=== PATIENT | male | born 1945 | race Caucasian/White ===

== ENCOUNTER 2020-06-16 08:57 | Inpatient (IN) ==
[2020-06-16 09:31] LABS: Basophils # (auto) 0.01 K/uL (0-0.2); Basophils % (auto) 0.1 %; Eosinophils # (auto) 0.25 K/uL (0-0.5); Eosinophils % (auto) 2.5 %; Hematocrit (blood only) 36.5 % (42-52); Hemoglobin 11.9 g/dL (14.0-18.0); Immature Granulocytes # (auto) 0.02 K/uL (0.00-0.02); Immature Granulocytes % (auto) 0.2 %; Lymphocytes # (auto) 0.98 K/uL (1.2-3.4); Lymphocytes % (auto) 9.7 %; Mean Corpuscular Hemoglobin 32.6 pg (25-34); Mean Corpuscular Hgb Conc 32.6 g/dL (32-36); Mean Platelet Volume 9.4 fL (7.4-10.4); Monocytes # (auto) 0.91 K/uL (0.11-0.59); Neutrophils # (auto) 7.98 K/uL (1.4-6.5); Neutrophils % (auto) 78.5 %; Platelet Count 261 K/uL (130-400); RDW Coefficient of Variation 13.5 % (11.5-14.5); RDW Standard Deviation 48.8 fL (36.4-46.3); Red Blood Count 3.65 M/uL (4.7-6.1); White Blood Count 10.15 K/uL (4.8-10.8)
[2020-06-16 09:41] LABS: INR 1.1 (0.9-1.1); Partial Thromboplastin Time 27.1 Seconds (21.0-31.0); Prothrombin Time 11.4 Seconds (9.0-12.0)
[2020-06-16 09:49] LABS: Albumin Level 3.1 gm/dl (3.4-5.0); BUN Creatinine Ratio 14.1 (10-20); Calcium 8.7 mg/dl (8.5-10.1); Creatinine Clr Calc Pharmacy 40.6 ml/min; Est GFR (African American) 34.4; Est GFR (Non-African American) 29.6; Potassium 3.6 mmol/L (3.5-5.1)
[2020-06-16 09:53] LABS: Albumin Globulin Ratio 0.8 (0.9-2); Bilirubin,Total 0.5 mg/dl (0.2-1); Globulin 3.9 gm/dl (2.5-4.0); Troponin I 0.032 ng/ml (0-0.045)
[2020-06-16] MEDS ORDERED: FUROSEMIDE 40 MG/4 ML VIAL IV STA (10:01)
--- NOTE | 2020-06-16 10:01 | XRay Report ---
XR chest 1V portable CLINICAL HISTORY: Shortness of breath COMPARISON STUDY: 06/06/2020 FINDINGS: The heart is enlarged. There are postsurgical changes of a midline sternotomy. There is mil d central pulmonary vascular congestion. There is subtle subpleural septal edema. There is no lobar c onsolidation. No significant pleural effusions are visualized. IMPRESSION: Cardiomegaly and radiographic evidence of congestive failure/fluid overload. ACT 112: Negative or not required by law. Electronically signed by: Sunny Perez M.D. 06/16/2020 10:00 AM
--- NOTE | 2020-06-16 10:21 | Emergency Department Note ---
Impression & Plan CHF (congestive heart failure), SOB (shortness of breath), Hypoxia, Acute kidney injury ED Provider Note NAME: HARLAN RODRIGUEZ AGE: 75 SEX: M : 1945 ARRIVES VIA: Walk-In INFORMANT: Patient, ED PROVIDER(S): Dillon Valderrama DO CHIEF COMPLAINT: Shortness of breath HPI: The patient is a 75-year-old male who presented to the emergency department for an evaluation of shortness of breath. The patient has a history of CHF. He was seen in our facility 1 week ago for similar complaints. At that time he was able to go home. He normally wears 2 L of oxygen and only increases this at night. Lately he has had to increase his oxygen more and more. Has noticed weight gain as well as orthopnea. The patient has a primary senior manufacturing technician and he was able to have his appointment moved up however over the last few days he noticed more weight gain more shortness of breath and his symptoms warranted a trip back to the emergency department. He does not complain of any chest pain. He has no lower extremity swelling or lower extremity pain. He has been compliant with his other medications including his blood thinners. The patient states his symptoms are worsened with any exertion. They are significantly improved at this time at rest with increased oxygen. ROS: See above HPI for pertinent positives & negatives. A total of 10 systems reviewed and were otherwise negative. PAST MEDICAL HISTORY: See Below PAST SURGICAL HISTORY: See Below FAMILY HISTORY: See Below SOCIAL HISTORY: See Below HOME MEDICATIONS: See Below ALLERGIES: See Below VITALS: See Below PHYSICAL EXAMINATION: GENERAL: The patient is awake and alert. He seems somewhat uncomfortable. EYES: The conjunctivae are clear. The pupils are round and reactive. EARS, NOSE, MOUTH AND THROAT: The nose is without any evidence of any deformity. Mucous membranes are moist. Tongue is midline. NECK: The neck is nontender and supple. RESPIRATORY: Shallow respirations were noted. Diminished breath sounds are noted throughout. There are rales in all lung monet. CARDIOVASCULAR: Ectopy was noted to auscultation. No definite murmur was noted. GASTROINTESTINAL: The abdomen is soft. Abdomen is nontender. MUSCULOSKELETAL/EXTREMITIES: There is no evidence of gross deformity full range of motion is noted in the hips and shoulders. SKIN: There is no obvious evidence of any rash. Pedal edema was noted bilaterally. NEUROLOGIC: Patient is awake alert and oriented x3 MEDICAL DECISION MAKING: The patient is a 75-year-old male who presented to the emergency department for an evaluation of shortness of breath. The patient complained of orthopnea. He also has weight gain. He has a history of CHF. I do feel the patient's presentation at this time is consistent with CHF exacerbation. I discussed the patient's laboratory and radiographic studies with him and his significant other. [facility] also [facility] The patient did have an elevation in his creatinine compared to baseline. Some of his symptoms today could be secondary to acute kidney injury however he was still treated with Lasix in the emergency department. The pa tient's oxygen was increased and he was feeling much better on increased supplemental oxygen. The patient may require further work-up to determine why he has an ablation his creatinine as well as an acute exacerbation of his chronic CHF. Triage Nursing notes reviewed. Prior medical records reviewed Vital Signs: reviewed and remarkable for hypoxia and elevated blood pressure. Differential diagnosis: Reactive airway disease, pneumonia, pneumothorax, COPD, CHF, infections, cardiac ischemia, pulmonary embolism, musculoskeletal, gastrointestinal, as well as other pathologies. ER treatment provided: See below Diagnostics interpreted by me: ECG: EKG was obtained in the emergency department. My interpretation is atrial fibrillation at 65 bpm. Frequent PVCs were noted. There is no acute ST segment abnormalities noted. This was compared to a tracing from June 09, 2020. No significant changes were noted. Cardiac Monitoring: An order was placed for continuous cardiac monitoring. The monitor shows a rate of 88 with atrial fibrillation rhythm. Laboratory studies: As stated above and show below. Imaging studies: See below Consultation(s): 1045: I discussed this case with Dr. Snyder who [facility] She will evaluate the patient in the emergency department for further management and disposition. Past Med/Surg History Medical History A-fib (Chronic) CHF (congestive heart failure) (Chronic) Surgical History Hx of CABG (Resolved) Social History Smoking Status: Former smoker Preferred Language: Greek Feels Safe at Home: Yes Allergies Allergies Allergy/AdvReac Type Severity Reaction Status Date / Time lisinopril Allergy Unknown Unverified 06/16/20 09:29 rosiglitazone AdvReac Intermediate PASSES Verified 06/06/20 16:27 OUT, LIGHT HEADED Home Meds Home Medications Medication Instructions Recorded Confirmed amlodipine [Norvasc] 10 mg PO QPM #0 06/15/09 06/16/20 metoprolol tartrate 12.5 mg PO QAM #0 06/15/09 06/16/20 multivitamin 1 tab PO DAILY #0 06/15/09 06/16/20 omeprazole magnesium [Prilosec OTC] 20 mg PO DAILY #0 06/15/09 06/16/20 albuterol sulfate [Ventolin HFA] 2 puff INHALATION Q4H #0 05/05/12 06/16/20 tamsulosin [Flomax] 0.4 mg PO BID #0 cap 05/05/12 06/16/20 finasteride [Proscar] 5 mg PO DAILY #0 tab 07/25/13 06/16/20 insulin aspart U-100 [Novolog 10 unit SUBCUT BID #0 btl 07/25/13 06/16/20 U-100 Insulin aspart] insulin glargine [Lantus U-100 35 unit SUBCUT PM #0 vial 07/25/13 06/16/20 Insulin] isosorbide mononitrate 15 mg PO DAILY #0 tab 07/25/13 06/16/20 nitroglycerin 0.4 mg SUBLINGUAL UD #0 btl 07/25/13 06/16/20 atorvastatin [Lipitor] 40 mg PO PM #0 tab 07/12/16 06/16/20 sertraline [Zoloft] 50 mg PO DAILY #0 tab 07/12/16 06/16/20 acetaminophen 1,000 mg PO Q8H PRN 06/06/20 06/16/20 apixaban 5 mg PO BID 06/06/20 06/16/20 bumetanide 3 mg PO DAILY 06/06/20 06/16/20 cholecalciferol (vitamin D3) 25 mcg PO DAILY 06/06/20 06/16/20 [Vitamin D3] clopidogrel 75 mg PO DAILY 06/06/20 06/16/20 ezetimibe [Zetia] 10 mg PO DAILY 06/06/20 06/16/20 insulin aspart U-100 [Novolog 14 unit SUBCUT QPM 06/06/20 06/16/20 U-100 Insulin aspart] metoprolol tartrate 12.5 mg PO QPM 06/06/20 06/16/20 losartan 50 mg PO DAILY 06/16/20 06/16/20 Results & Data (ED) Vital Signs Vital Signs - 24 hr 06/16/20 09:02 06/16/20 09:17 06/16/20 09:19 Temperature 36.8 C Temperature Source Oral Pulse Rate 82 Pulse Rate from SpO2 Sensor Pulse Rhythm Regular Pulse Strength Normal Respiratory Rate 24 Respiratory Effort / Characteristics Non-Labored Spontaneous Respiratory Depth Normal Respiratory Pattern Regular Blood Pressure 122/68 Blood Pressure Mean 86 Blood Pressure Position Sitting Pulse Oximetry 80 L 97 96 Oxygen Delivery Method Room Air Nasal Cannula Nasal Cannula Oxygen Flow Rate 4 4 Sepsis Recent Fever Within 48 Hours No Sepsis New/Unexplained Change in Mental Status No Sepsis Action Taken by Nursing No Action Required 06/16/20 09:26 06/16/20 09:30 06/16/20 09:45 Temperature Temperature Source Pulse Rate 62 63 64 Pulse Rate from SpO2 Sensor 59 L 70 62 Pulse Rhythm Pulse Strength Respiratory Rate 8 L 15 16 Respiratory Effort / Characteristics Respiratory Depth Respiratory Pattern Blood Pressure Blood Pressure Mean Blood Pressure Position Pulse Oximetry 98 97 97 Oxygen Delivery Method Oxygen Flow Rate Sepsis Recent Fever Within 48 Hours Sepsis New/Unexplained Change in Mental Status Sepsis Action Taken by Nursing 06/16/20 10:00 06/16/20 10:01 Temperature Temperature Source Pulse Rate 59 L 73 Pulse Rate from SpO2 Sensor 62 69 Pulse Rhythm Pulse Strength Respiratory Rate 20 20 Respiratory Effort / Characteristics Respiratory Depth Respiratory Pattern Blood Pressure 166/60 H Blood Pressure Mean 89 Blood Pressure Position Pulse Oximetry 96 95 Oxygen Delivery Method Oxygen Flow Rate Sepsis Recent Fever Within 48 Hours Sepsis New/Unexplained Change in Mental Status Sepsis Action Taken by Long Term Medications Current Medication List: was personally reviewed by me Laboratory Data Attestation: I reviewed the patient's lab results. Result diagrams: 06/16/20 09:20 06/16/20 09:20 Lab Results 06/16/20 06/16/20 06/16/20 Range/Units 09:20 09:20 09:20 WBC 10.15 (4.8-10.8) K/uL RBC 3.65 L (4.7-6.1) M/uL Hgb 11.9 L (14.0-18.0) g/dL Hct 36.5 L (42-52) % MCV 100.0 (80-100) fL MCH 32.6 (25-34) pg MCHC 32.6 (32-36) g/dL RDW Std Deviation 48.8 H (36.4-46.3) fL RDW Coeff of Tricia 13.5 (11.5-14.5) % Plt Count 261 (130-400) K/uL MPV 9.4 (7.4-10.4) fL Immature Gran % (Auto) 0.2 % Neut % (Auto) 78.5 % Lymph % (Auto) 9.7 % Cobb % (Auto) 9.0 % Eos % (Auto) 2.5 % Baso % (Auto) 0.1 % Neut # (Auto) 7.98 H (1.4-6.5) K/uL Lymph # (Auto) 0.98 L (1.2-3.4) K/uL Cobb # (Auto) 0.91 H (0.11-0.59) K/uL Eos # (Auto) 0.25 (0-0.5) K/uL Baso # (Auto) 0.01 (0-0.2) K/uL Immature Gran # (Auto) 0.02 (0.00-0.02) K/uL PT 11.4 (9.0-12.0) Seconds INR 1.1 (0.9-1.1) APTT 27.1 (21.0-31.0) Seconds PTT Ratio 1.0 Sodium 141 (136-145) mmol/L Potassium 3.6 (3.5-5.1) mmol/L Chloride 107 (98-107) mmol/L Carbon Dioxide 29 (21-32) mmol/L Anion Gap 5.0 (3-11) BUN 30 H (7-18) mg/dl Creatinine 2.09 H (0.6-1.4) mg/dl Est Cr Clr Drug Dosing 40.6 ml/min Est GFR ( Amer) 34.4 Est GFR (Non-Af Amer) 29.6 BUN/Creatinine Ratio 14.1 (10-20) Glucose 187 H (70-99) mg/dl Calcium 8.7 (8.5-10.1) mg/dl Total Bilirubin 0.5 (0.2-1) mg/dl AST 14 L (15-37) U/L ALT 18 (12-78) U/L Alkaline Phosphatase 105 (45-117) U/L Troponin I 0.032 (0-0.045) ng/ml Total Protein 7.0 (6.4-8.2) gm/dl Albumin 3.1 L (3.4-5.0) gm/dl Globulin 3.9 (2.5-4.0) gm/dl Albumin/Globulin Ratio 0.8 L (0.9-2) Administered Medications Discontinued Medications Furosemide (Lasix) 40 mg IV NOW STA Stop: 06/16/20 10:02 Last Admin: 06/16/20 10:13 Dose: 40 mg Documented by: [id number] Imaging Data Radiologist's Impression: XR chest 1V portable CLINICAL HISTORY: Shortness of breath COMPARISON STUDY: 06/06/2020 FINDINGS: The heart is enlarged. There are postsurgical changes of a midline sternotomy. There is mild central pulmonary vascular congestion. There is subtle subpleural septal edema. There is no lobar consolidation. No significant pleural effusions are visualized. IMPRESSION: Cardiomegaly and radiographic evidence of congestive failure/fluid overload. ACT 112: Negative or not required by law. Electronically signed by: Sunny Perez M.D. 06/16/2020 10:00 AM Dictated: 06/16/2059 Transcribed: 06/16/20958 Blood Pressure Blood Pressure Findings: Elevated blood pressure Blood Pressure Disposition: further management by hospitalist Discharge Plan Visit Data Chief Complaint: Shortness of Breath/Dyspnea Stated Complaint: SOB,VERY LOW 02 STATS,3LBS WEIGHT GAIN OVER NIGHT ED Provider: Dillon Valderrama Discharge Problem: CHF (congestive heart failure), SOB (shortness of breath), Hypoxia, Acute kidney injury Patient Disposition: Being Evaluated by Hospitalist Condition: Good Forms Stand Alone Forms: My [employer] Prescriptions Prescriptions: No Action multivitamin Tablet 1 tab PO DAILY Qty: 0 RF: 0 amlodipine [Norvasc] 10 mg Tablet 10 mg PO QPM Qty: 0 RF: 0 omeprazole magnesium [Prilosec OTC] 20 mg Tablet,Delayed Release (Dr/Ec) 20 mg PO DAILY Qty: 0 RF: 0 metoprolol tartrate 25 mg Tablet 12.5 mg PO QAM Qty: 0 RF: 0 tamsulosin [Flomax] 0.4 mg Capsule 0.4 mg PO BID Qty: 0 RF: 0 albuterol sulfate [Ventolin HFA] 90 mcg/actuation Hfa Aerosol Inhaler 2 puff INHALATION Q4H Qty: 0 RF: 0 Lantus U-100 Insulin 100 unit/mL Solution 35 unit SUBCUT PM Qty: 0 RF: 0 isosorbide mononitrate 30 mg Tablet Extended Release 24 Hr 15 mg PO DAILY Qty: 0 RF: 0 insulin aspart U-100 [Novolog U-100 Insulin aspart] 100 unit/mL Solution 10 unit SUBCUT BID Qty: 0 RF: 0 nitroglycerin 0.4 mg Tablet, Sublingual 0.4 mg sublingual UD Qty: 0 RF: 0 finasteride [Proscar] 5 mg Tablet 5 mg PO DAILY Qty: 0 RF: 0 atorvastatin [Lipitor] 80 mg Tablet 40 mg PO PM Qty: 0 RF: 0 sertraline [Zoloft] 50 mg Tablet 50 mg PO DAILY Qty: 0 RF: 0 clopidogrel 75 mg Tablet 75 mg PO DAILY RF: 0 insulin aspart U-100 [Novolog U-100 Insulin aspart] 100 unit/mL Solution 14 unit SUBCUT QPM RF: 0 acetaminophen 500 mg Capsule 1,000 mg PO Q8H PRN (Reason: Pain) RF: 0 cholecalciferol (vitamin D3) [Vitamin D3] 25 mcg (1,000 unit) Capsule 25 mcg PO DAILY RF: 0 ezetimibe [Zetia] 10 mg Tablet 10 mg PO DAILY RF: 0 metoprolol tartrate 25 mg Tablet 12.5 mg PO QPM RF: 0 apixaban 5 mg Tablet 5 mg PO BID RF: 0 bumetanide 1 mg Tablet 3 mg PO DAILY RF: 0 losartan 50 mg Tablet 50 mg PO DAILY RF: 0 Referrals Referrals: Austin Singletary MD [Primary Care Provider] - Discharge Problem: CHF (congestive heart failure) Qualifiers: Heart failure type: unspecified Heart failure chronicity: acute on chronic Qualified Code(s): I50.9 - Heart failure, unspecified
--- NOTE | 2020-06-16 10:54 | History & Physical Report ---
Date of Service June 16, 2020 Assessment & Plan (1) CHF (congestive heart failure): Here with acute on chronic diastolic CHF, has mild ischemic cardiomyopathy with LVEF 45% on most recent echo Follows with cardiology at the [facility] in [place] Here with weight gain, lower extremity edema, progressively worsening shortness of breath and acute hypoxic respiratory failure proBNP was elevated 10 days ago-we will check again -Admit to telemetry unit for arrhythmia monitoring -Continue Lasix 40 mg IV twice daily -Strict I's and O's, daily weights, low-sodium diet, fluid restrict 1800 mL's per day -Carefully monitor renal function-he is at his baseline creatinine of 2.0- confirmed baseline creatinine with at bedside -Supplemental O2 as needed -Continue cardiac medications from home to include metoprolol, losartan, isosorbide, amlodipine all for blood pressure control -Hold home p.o. Bumex (2) Hypoxia: With acute on chronic respiratory failure with hypoxia Normally he is on 2 L at nighttime with his BiPAP Now requiring 4 L during the day with a pulse ox of 80% upon arrival -Continue supplemental O2 and wean off as able to to keep pulse ox greater than 92% He does have underlying COPD -Continue diuresis as above -Continue home inhalers with albuterol as needed and Spiriva once daily (3) A-fib: Permanent atrial fibrillation, on Eliquis for anticoagulation -Continue low-dose metoprolol tartrate for rate control No acute issues (4) CAD (coronary artery disease), [place] coronary artery: Status post 6 stents and two-vessel CABG Follows with cardiology in [place] as noted above -Continue home Plavix, Eliquis, metoprolol, isosorbide, atorvastatin (5) CKD (chronic kidney disease) stage 3, GFR 30-59 ml/min: Baseline creatinine 2.0 as per -Watch carefully renal function with IV diuresis -Avoid nephrotoxins -renally dose meds when appropriate -follow BMP -Okay to continue losartan at this time (6) Diabetes mellitus type 2 in obese: On insulin at home -Continue home Lantus and will give NovoLog sliding scale, Accu-Cheks q. before meals and at bedtime Diabetic diet Check hemoglobin A1c in the morning (7) HTN (hypertension), benign: Blood pressures mildly elevated here -Giving IV diuresis -Continue other medications as above from home (8) GERD (gastroesophageal reflux disease): Continue PPI (9) BPH (benign prostatic hyperplasia): Continue Flomax and finasteride , No acute issues (10) Depression: Stable -Continue home sertraline (11) Hyperlipidemia: Continue home statin (12) COPD (chronic obstructive pulmonary disease): With hypoxia as above, does not seem to be an exacerbation at this time -Continue home Spiriva, albuterol as needed No need for steroids specially in the setting of acute CHF (13) KELLY treated with BiPAP: His will bring in his BiPAP from home with 2 L at nighttime (14) Obesity: BMI 42.1 -Needs weight loss and low calorie diet (15) Ischemic cardiomyopathy: As noted above, last LVEF 45% (16) PAD (peripheral artery disease): He has bilateral lower extremity PAD with leg claudication No intervention to be performed given his chronic kidney disease -Continue Plavix, Eliquis, statin (17) Chronic respiratory failure with hypoxia: As noted above, uses 2 L with BiPAP at nighttime (18) History of CVA (cerebrovascular accident): Now on Eliquis, with history of A. fib With some residual left-sided weakness -Continue Plavix, Eliquis (19) Anemia: With mild anemia here with is normocytic, hemoglobin 11 -Check iron studies, B12, folate, TSH in the morning Most likely anemia of chronic disease Follow CBC (20) DVT prophylaxis: Eliquis, would not do VERN hose or SCDs given PAD Disposition-admit to telemetry, expected least a 2 midnight stay DNR, but would consider intubation for pure respiratory failure History of Present Illness Chief Complaint: Shortness of breath Primary Care Provider: Austin Singletary MD This patient is a very pleasant 75-year-old male [place] with a history of A. fib on Eliquis, CAD status post CABG and 6 stents, chronic diastolic CHF, and mild LV dysfunction with EF 45%, HTN, CKD stage III, COPD, CVA with mild residual left-sided weakness, GERD, BPH, hyperlipidemia, depression, DM 2, KELLY on BiPAP, and PAD of the bilateral lower extremities who presents for the second time in the last 10 days to our ER with acutely worsening shortness of breath. In the ER on 06/06 he was treated with IV Bumex and potassium and felt well enough to go home. He is normally on no O2 during the day but uses 2 L with his BiPAP of O2 nocturnally and he tried to use BiPAP this morning but it did not help and he came to the ER. His pulse ox at home on his 's pulse oximeter was 77%. Upon arrival here today, his pulse ox was 80% on room air. His chest x-ray appeared worse than previous with cardiomegaly and pulmonary vascular congestion. His keeps a daily record of his vital signs and weights-she reports after last week's ER visit, he went up on his Bumex to 2 mg p.o. twice daily for 2 days and then his PCP directed him to take 3 mg p.o. once daily (previous dose was 2 mg p.o. once daily). His weight did go down by 7 pounds, and now he is back up 9 pounds from that aba at 292 pounds on the home scale today. He also has some increased ankle swelling and increased abdominal girth and distention. He denies fever/chills, no cough, no chest pain. No nausea/vomiting, no abdominal pain, no constipation or diarrhea. He has been socially isolating and staying at home except to go to doctors visits and [place] . In the ER, he was given a dose of IV Lasix. He will be admitted for acute exacerbation of chronic diastolic CHF. Allergies Allergy/AdvReac Type Severity Reaction Status Date / Time lisinopril Allergy Unknown Unverified 06/16/20 09:29 rosiglitazone AdvReac Intermediate PASSES Verified 06/06/20 16:27 OUT, LIGHT HEADED Home Medications Home Medications Medication Instructions Recorded Confirmed Type amlodipine [Norvasc] 10 mg PO QPM #0 06/15/09 06/16/20 History metoprolol tartrate 12.5 mg PO QAM #0 06/15/09 06/16/20 History multivitamin 1 tab PO DAILY #0 06/15/09 06/16/20 History omeprazole magnesium [Prilosec OTC] 20 mg PO DAILY #0 06/15/09 06/16/20 History albuterol sulfate [Ventolin HFA] 2 puff INHALATION Q4H #0 05/05/12 06/16/20 History tamsulosin [Flomax] 0.4 mg PO BID #0 cap 05/05/12 06/16/20 History finasteride [Proscar] 5 mg PO DAILY #0 tab 07/25/13 06/16/20 History insulin aspart U-100 [Novolog 10 unit SUBCUT BID #0 btl 07/25/13 06/16/20 History U-100 Insulin aspart] insulin glargine [Lantus U-100 35 unit SUBCUT PM #0 vial 07/25/13 06/16/20 History Insulin] isosorbide mononitrate 15 mg PO DAILY #0 tab 07/25/13 06/16/20 History nitroglycerin 0.4 mg SUBLINGUAL UD #0 btl 07/25/13 06/16/20 History atorvastatin [Lipitor] 40 mg PO PM #0 tab 07/12/16 06/16/20 History sertraline [Zoloft] 50 mg PO DAILY #0 tab 07/12/16 06/16/20 History acetaminophen 1,000 mg PO Q8H PRN 06/06/20 06/16/20 History apixaban 5 mg PO BID 06/06/20 06/16/20 History bumetanide 3 mg PO DAILY 06/06/20 06/16/20 History cholecalciferol (vitamin D3) 25 mcg PO DAILY 06/06/20 06/16/20 History [Vitamin D3] clopidogrel 75 mg PO DAILY 06/06/20 06/16/20 History ezetimibe [Zetia] 10 mg PO DAILY 06/06/20 06/16/20 History insulin aspart U-100 [Novolog 14 unit SUBCUT QPM 06/06/20 06/16/20 History U-100 Insulin aspart] metoprolol tartrate 12.5 mg PO QPM 06/06/20 06/16/20 History losartan 50 mg PO DAILY 06/16/20 06/16/20 History Past Med/Surg History Medical History (Updated 06/16/20 @ 11:48 by Aranza Snyder MD) A-fib (Chronic) Anemia BPH (benign prostatic hyperplasia) CAD (coronary artery disease), [place] coronary artery CHF (congestive heart failure) (Chronic) Chronic respiratory failure with hypoxia CKD (chronic kidney disease) stage 3, GFR 30-59 ml/min COPD (chronic obstructive pulmonary disease) Depression Diabetes mellitus type 2 in obese GERD (gastroesophageal reflux disease) History of CVA (cerebrovascular accident) HTN (hypertension), benign Hyperlipidemia Ischemic cardiomyopathy Obesity KELLY treated with BiPAP PAD (peripheral artery disease) Surgical History History of cataract extraction History of rotator cuff surgery History of total left knee replacement (Inactive) Hx of CABG (Resolved) Family History Other Family history non-contributory Social History Smoking Status: Former smoker Tobacco Type: Cigarettes Age Quit Using Tobacco: 45; packs per day: 1; Years Smoked: 30; Hx Alcohol Use: No Hx Substance Use: No Preferred Language: Swedish marital status: Current Living Situation: Spouse current occupational status: retired 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 [employer] How many Children do You have: 4 Feels Safe at Home: Yes Review of Systems Review of Systems: All systems reviewed & are unremarkable except as noted in HPI & below Physical Exam Constitutional: WD/WN, vitals as above + morbidly obese Eyes: PERRL, conjunctivae normal, anicteric sclerae ENMT: external ear and nose normal, oropharynx normal (With large tongue) Neck: trachea midline, no thyromegaly (Obese neck) Respiratory: normal respiratory effort (With nasal cannula in place); no labored breathing, no cough and not tachypneic Auscultation: + diminished lung sounds (Throughout) and + crackles (Bibasilar); no wheezes Cardiovascular: Rate/Rhythm: regular rate and + irregularly irregular Heart Sounds: no murmur Extremities: + edema (Trace pitting edema of the feet and ankles bilaterally) Chest (Breasts): Chest: + abnormal inspection of chest (Midline sternotomy scar) Gastrointestinal (Abdomen): normal bowel sounds, soft, nontender, no hepatosplenomegaly (Morbidly obese) Musculoskeletal: Extremities: extremities normal to inspection; no cyanosis and no clubbing Skin: no rashes, warm and dry Neurologic: moves all extremities and awake; no focal motor deficits Psychiatric: A+Ox3, euthymic affect Lymphatic: no lymphedema Results & Data Results & Data ([facility]) Vital Signs (Past 12 Hours) Vital Signs Temp Pulse Resp BP Pulse Ox 06/16/20 10:01 73 20 95 06/16/20 10:00 59 L 20 166/60 H 96 06/16/20 09:45 64 16 97 06/16/20 09:30 63 15 97 06/16/20 09:26 62 8 L 98 06/16/20 09:19 96 06/16/20 09:17 97 06/16/20 09:02 36.8 C 82 24 122/68 80 L Laboratory Results 06/16/20 06/16/20 06/16/20 Range/Units 09:20 09:20 09:20 WBC 10.15 (4.8-10.8) K/uL RBC 3.65 L (4.7-6.1) M/uL Hgb 11.9 L (14.0-18.0) g/dL Hct 36.5 L (42-52) % MCV 100.0 (80-100) fL MCH 32.6 (25-34) pg MCHC 32.6 (32-36) g/dL RDW Std Deviation 48.8 H (36.4-46.3) fL RDW Coeff of Tricia 13.5 (11.5-14.5) % Plt Count 261 (130-400) K/uL MPV 9.4 (7.4-10.4) fL Immature Gran % (Auto) 0.2 % Neut % (Auto) 78.5 % Lymph % (Auto) 9.7 % Walsh % (Auto) 9.0 % Eos % (Auto) 2.5 % Baso % (Auto) 0.1 % Neut # (Auto) 7.98 H (1.4-6.5) K/uL Lymph # (Auto) 0.98 L (1.2-3.4) K/uL Walsh # (Auto) 0.91 H (0.11-0.59) K/uL Eos # (Auto) 0.25 (0-0.5) K/uL Baso # (Auto) 0.01 (0-0.2) K/uL Immature Gran # (Auto) 0.02 (0.00-0.02) K/uL PT 11.4 (9.0-12.0) Seconds INR 1.1 (0.9-1.1) APTT 27.1 (21.0-31.0) Seconds PTT Ratio 1.0 Sodium 141 (136-145) mmol/L Potassium 3.6 (3.5-5.1) mmol/L Chloride 107 (98-107) mmol/L Carbon Dioxide 29 (21-32) mmol/L Anion Gap 5.0 (3-11) BUN 30 H (7-18) mg/dl Creatinine 2.09 H (0.6-1.4) mg/dl Est Cr Clr Drug Dosing 40.6 ml/min Est GFR ( Amer) 34.4 Est GFR (Non-Af Amer) 29.6 BUN/Creatinine Ratio 14.1 (10-20) Glucose 187 H (70-99) mg/dl Calcium 8.7 (8.5-10.1) mg/dl Total Bilirubin 0.5 (0.2-1) mg/dl AST 14 L (15-37) U/L ALT 18 (12-78) U/L Alkaline Phosphatase 105 (45-117) U/L Troponin I 0.032 (0-0.045) ng/ml Total Protein 7.0 (6.4-8.2) gm/dl Albumin 3.1 L (3.4-5.0) gm/dl Globulin 3.9 (2.5-4.0) gm/dl Albumin/Globulin Ratio 0.8 L (0.9-2) Diagnostic Findings Chest x-ray image personally reviewed by me and agree with the following report: XR chest 1V portable CLINICAL HISTORY: Shortness of breath COMPARISON STUDY: 06/06/2020 FINDINGS: The heart is enlarged. There are postsurgical changes of a midline sternotomy. There is mild central pulmonary vascular congestion. There is subtle subpleural septal edema. There is no lobar consolidation. No significant pleural effusions are visualized. IMPRESSION: Cardiomegaly and radiographic evidence of congestive failure/fluid overload. ECG Additional Comments: ECG on 06/16/2020 at 0 914 with atrial fibrillation, rate 65, with PVCs, left axis deviation, no change from previous Code Status & VTE Plan Code Status DNR, but would consider intubation for respiratory failure VTE Prophylaxis Plan VTE Prophylaxis will be ordered: Yes PG Care Time/CCT Total # of Minutes Spent Total Time Spent with Patient: Total time spent is greater than 50% in coordination of care (as documented) at patient's floor/unit and/or counseling patient: Coding Level of Care Code 06531 Initial Inpt Care Lvl 3 Diagnoses CHF (congestive heart failure) I50.9 Heart failure chronicity: acute on chronic Heart failure type: unspecified Hypoxia R09.02 A-fib I48.91 CAD (coronary artery disease), [place] coronary artery I25.10 CKD (chronic kidney disease) stage 3, GFR 30-59 ml/min N18.3 Diabetes mellitus type 2 in obese E11.69; E66.9 HTN (hypertension), benign I10 GERD (gastroesophageal reflux disease) K21.9 BPH (benign prostatic hyperplasia) N40.0 Depression F32.9 Hyperlipidemia E78.5 COPD (chronic obstructive pulmonary disease) J44.9 KELLY treated with BiPAP G47.33 Obesity E66.9 Ischemic cardiomyopathy I25.5 PAD (peripheral artery disease) I73.9 Chronic respiratory failure with hypoxia J96.11 History of CVA (cerebrovascular accident) Z86.73 Anemia D64.9 DVT prophylaxis Z29.9 (1) CHF (congestive heart failure) Heart failure chronicity: acute on chronic Heart failure type: unspecified Qualified Code(s): I50.9 - Heart failure, unspecified
[2020-06-16] MEDS ORDERED: POLYETHYLENE (MIRALAX) 17 GM PACK PO PRN (14:34)
[2020-06-16] MEDS ORDERED: ACETAMINOPHEN 500 MG TAB PO PRN (14:34)
[2020-06-16] MEDS ORDERED: GLUCOSE 40% GEL 15 GM TUBE PO PRN (14:34)
[2020-06-16] MEDS ORDERED: NITROGLYCERIN SL 0.4 MG/TAB TAB SL PRN (14:34)
[2020-06-16] MEDS ORDERED: DEXTROSE 50% 50 ML SYRINGE IV PRN (14:34)
[2020-06-16] MEDS ORDERED: CARBOHYDRATES FOR HYPOGLYCEMIA PO PRN (14:34)
[2020-06-16] MEDS ORDERED: GLUCOSE 10 TABS/TUBE PO PRN (14:34)
[2020-06-16] MEDS ORDERED: GLUCAGON FOR INJ 1 MG VIAL SQ PRN (14:34)
[2020-06-16] MEDS ORDERED: ONDANSETRON INJ 2 MG/ML 2 ML VIAL IV PRN (14:34)
--- NOTE | 2020-06-16 16:13 | Electrocardiogram Report ---
Test Reason : Blood Pressure : / mmHG Vent. Rate : 065 BPM Atrial Rate : 312 BPM P-R Int : 000 ms QRS Dur : 104 ms QT Int : 420 ms P-R-T Axes : 000 -44 031 degrees QTc Int : 436 ms Atrial fibrillation with premature ventricular or aberrantly conducted complexes Left axis deviation Abnormal ECG When compared with ECG of 06-JUN-2020 16:11, No significant change was found Confirmed by Mike Schaefer ([id number]) on 06/16/2020 4:13:16 PM Referred By: ED Confirmed By:Mike Schaefer
[2020-06-16] MEDS: ALBUTEROL HFA 8 GM INHALER INH SCH ×2 (17:03→20:00)
[2020-06-16] MEDS: FUROSEMIDE 40 MG in SYRINGE 1 ML IV SCH (17:34)
[2020-06-16] MEDS: INSULIN ASPART 100 UNITS/ML 3 ML PEN SC SCH ×2 (17:35→20:39)
[2020-06-16] MEDS: AMLODIPINE BESYLATE 5 MG TAB PO SCH (20:24)
[2020-06-16] MEDS: ATORVASTATIN 40 MG TAB PO SCH (20:24)
[2020-06-16] MEDS: APIXABAN 5 MG TABLET PO SCH (20:24)
[2020-06-16] MEDS: METOPROLOL TARTRATE 25 MG TAB PO SCH (20:25)
[2020-06-16] MEDS: TAMSULOSIN HCL 0.4 MG CAP PO SCH (20:25)
[2020-06-16] MEDS: INSULIN GLARGINE SOLOSTAR 100 UNITS/ML 3 ML PEN SQ SCH (20:26)
[2020-06-17] MEDS: ALBUTEROL HFA 8 GM INHALER INH SCH ×4 (07:01→19:16)
[2020-06-17 07:31] LABS: Basophils # (auto) 0.01 K/uL (0-0.2); Basophils % (auto) 0.1 %; Eosinophils # (auto) 0.16 K/uL (0-0.5); Eosinophils % (auto) 2.1 %; Hematocrit (blood only) 34.3 % (42-52); Hemoglobin 11.3 g/dL (14.0-18.0); Immature Granulocytes # (auto) 0.02 K/uL (0.00-0.02); Immature Granulocytes % (auto) 0.3 %; Lymphocytes # (auto) 1.18 K/uL (1.2-3.4); Lymphocytes % (auto) 15.3 %; Mean Corpuscular Hemoglobin 33.2 pg (25-34); Mean Corpuscular Hgb Conc 32.9 g/dL (32-36); Mean Corpuscular Volume 100.9 fL (80-100); Mean Platelet Volume 9.5 fL (7.4-10.4); Monocytes # (auto) 0.84 K/uL (0.11-0.59); Monocytes % (auto) 10.9 %; Neutrophils # (auto) 5.48 K/uL (1.4-6.5); Neutrophils % (auto) 71.3 %; Platelet Count 247 K/uL (130-400); RDW Coefficient of Variation 13.4 % (11.5-14.5); RDW Standard Deviation 49.2 fL (36.4-46.3); White Blood Count 7.69 K/uL (4.8-10.8)
--- NOTE | 2020-06-17 07:55 | Hospitalist Progress Note ---
Date of Service June 17, 2020 Assessment & Plan (1) CHF (congestive heart failure): Here with acute on chronic diastolic CHF, has mild ischemic cardiomyopathy with LVEF 45% on most recent echo Follows with cardiology at [facility] [place] Lasix 40 mg IV twice daily , low-sodium diet, fluid restrict 1800 mL's per day -Carefully monitor renal function-he is at his baseline creatinine of 2.0- confirmed baseline creatinine with at bedside Chronic kidney disease stage 3-4 -Supplemental O2 as needed -Continue cardiac medications from home to include metoprolol, losartan, isosorbide, amlodipine all for blood pressure control -Hold home p.o. Bumex (2) Hypoxia: With acute on chronic respiratory failure with hypoxia Normally hehas chronic respiratory failure on 2 L at nighttime with his BiPAP, underlying copd Now requiring 4 L during the day with a pulse ox of 80% upon arrival COPD remains on home inhalers with albuterol as needed and Spiriva once daily (3) A-fib: Permanent atrial fibrillation, on Eliquis for anticoagulation metoprolol tartrate for rate control (4) CAD (coronary artery disease), [place] coronary artery: Status post 6 stents and two-vessel CABG-> Plavix, Eliquis, metoprolol, isosorbide, atorvastatin (5) CKD (chronic kidney disease) stage 3, GFR 30-59 ml/min: Baseline creatinine 2.0 as per -Avoid nephrotoxins continue losartan at this time (6) Diabetes mellitus type 2 in obese: On insulin at home -Continue home Lantus and will give NovoLog sliding scale, Accu-Cheks q. before meals and at bedtime Diabetic diet hemoglobin A1c 8.1 (7) HTN (hypertension), benign: Blood pressures mildly elevated here -Giving IV diuresis -Continue other medications as above from home (8) GERD (gastroesophageal reflux disease): Continue PPI (9) BPH (benign prostatic hyperplasia): Continue Flomax and finasteride , No acute issues (10) Depression: Stable -Continue home sertraline (11) Hyperlipidemia: Continue home statin (12) COPD (chronic obstructive pulmonary disease): With hypoxia as above, does not seem to be an exacerbation at this time -Continue home Spiriva, albuterol as needed No need for steroids specially in the setting of acute CHF (13) KELLY treated with BiPAP: His will bring in his BiPAP from home with 2 L at nighttime (14) Obesity: BMI 42.1 -Needs weight loss and low calorie diet (15) Ischemic cardiomyopathy: As noted above, last LVEF 45% (16) PAD (peripheral artery disease): He has bilateral lower extremity PAD with leg claudication No intervention to be performed given his chronic kidney disease -Continue Plavix, Eliquis, statin (17) Chronic respiratory failure with hypoxia: As noted above, uses 2 L with BiPAP at nighttime (18) History of CVA (cerebrovascular accident): Now on Eliquis, with history of A. fib With some residual left-sided weakness -Continue Plavix, Eliquis (19) Anemia: With mild anemia here with is normocytic, hemoglobin 11 -Check iron studies, B12, folate, TSH in the morning Most likely anemia of chronic disease Follow CBC (20) DVT prophylaxis: Eliquis, would not do VERN hose or SCDs given PAD Disposition-admit to telemetry, expected least a 2 midnight stay DNR, but would consider intubation for pure respiratory failure Admission and Anticipated Discharge Date Admission Date: June 16, 2020 Subjective Patient was seen in the company of his son he relates that this is been going on for a few weeks attempted increasing his outpatient diuretics were undertaken. The patient did develop some shortness of breath prior to going out to eat to a restaurant and then worsened. Patient also suffers from COPD but does not feel that his shortness of breath is COPD related but feels its more related to his heart. [facility] Review of Systems Review of Systems: Moderate distress and fatigue no headache, blurry or double vision no speech or swallowing issues no chest pain, pressure or palpitations Dyspnea on exertion no abdominal pain, nausea or vomiting, diarrhea or constipation no dysuria, hematuria or frequency Osteoarthritis joint pain and persistent distal lower extremity swelling no back pain, CVA tenderness or radicular pain no bruising, bleeding or rashes no focal signs of weakness or numbness or altered sensation no complaints or anxiety or depression. Physical Exam Physical Exam: The patient appeared chronically ill Vital signs as documented. Head exam is normocephalic atraumatic no scleral icterus Neck is with 2 cm JVD, thyromegaly, or carotid bruits. Lungs are overall poor air movement scant rales at the base Cardiac exam, Rhythm is regular. Systolic ejection murmur Abdominal exam reveals normal bowel sounds, soft non tender, no masses Extremities are mildly edematous (this is after diuresis ensued) and both pedal pulses are normal. Neurologic exam is alert and oriented, no focal loss of strength or sensation Skin is without bruises or rashes Psychologically is without concerns for anxiety or depression Results & Data Results & Data ([facility]) Vital Signs (Past 12 Hours) Vital Signs Temp Pulse Pulse Resp BP BP Pulse Ox 06/17/20 07:44 98.2 F 80 18 135/78 97 06/17/20 07:23 66 06/17/20 07:04 74 18 99 06/17/20 03:00 98.6 F 79 20 176/73 H 98 06/17/20 00:00 78 06/16/20 23:46 98.8 F 56 L 22 159/68 H 96 06/16/20 20:01 91 H 18 92 PG Care Time/CCT Total # of Minutes Spent Total Time Spent with Patient: Total time spent is greater than 50% in coordination of care (as documented) at patient's floor/unit and/or counseling patient: Coding Level of Care Code 13386 Subseq Hosp Care Lvl 3 Diagnoses CHF (congestive heart failure) I50.9 Heart failure chronicity: acute on chronic Heart failure type: unspecified Hypoxia R09.02 A-fib I48.91 CAD (coronary artery disease), [place] coronary artery I25.10 CKD (chronic kidney disease) stage 3, GFR 30-59 ml/min N18.3 Diabetes mellitus type 2 in obese E11.69; E66.9 HTN (hypertension), benign I10 GERD (gastroesophageal reflux disease) K21.9 BPH (benign prostatic hyperplasia) N40.0 Depression F32.9 Hyperlipidemia E78.5 COPD (chronic obstructive pulmonary disease) J44.9 KELLY treated with BiPAP G47.33 Obesity E66.9 Ischemic cardiomyopathy I25.5 PAD (peripheral artery disease) I73.9 Chronic respiratory failure with hypoxia J96.11 History of CVA (cerebrovascular accident) Z86.73 Anemia D64.9 DVT prophylaxis Z29.9 (1) CHF (congestive heart failure) Heart failure chronicity: acute on chronic Heart failure type: unspecified Qualified Code(s): I50.9 - Heart failure, unspecified
[2020-06-17 07:58] LABS: Est GFR (African American) 36.9; Est GFR (Non-African American) 31.8; Potassium 3.5 mmol/L (3.5-5.1)
[2020-06-17 08:04] LABS: Estimated Average Glucose 186 mg/dl; Hemoglobin A1C 8.1 % (4.5-5.6)
[2020-06-17 08:09] LABS: Thyroid Stimulating Hormone 2.81 uIu/ml (0.300-4.500)
[2020-06-17] MEDS: CLOPIDOGREL BISULFATE 75 MG TAB PO SCH (08:10)
[2020-06-17] MEDS: APIXABAN 5 MG TABLET PO SCH ×2 (08:10→20:19)
[2020-06-17] MEDS: LOSARTAN POTASSIUM 50 MG TAB PO SCH (08:11)
[2020-06-17] MEDS: FINASTERIDE 5 MG TAB PO SCH (08:11)
[2020-06-17] MEDS: MULTIVITAMIN TAB PO SCH (08:11)
[2020-06-17] MEDS: EZETIMIBE 10 MG TABLET PO SCH (08:11)
[2020-06-17] MEDS: TAMSULOSIN HCL 0.4 MG CAP PO SCH ×2 (08:11→20:20)
[2020-06-17] MEDS: ISOSORBIDE MONO EXTENDED REL 30 MG TABCR PO SCH (08:12)
[2020-06-17] MEDS: METOPROLOL TARTRATE 25 MG TAB PO SCH ×2 (08:12→20:21)
[2020-06-17] MEDS: CHOLECALCIFEROL 1,000 UNITS 25 MCG TAB PO SCH (08:12)
[2020-06-17] MEDS: SERTRALINE HCL 50 MG TABLET PO SCH (08:13)
[2020-06-17] MEDS: PANTOprazole 40 MG TAB PO SCH (08:13)
[2020-06-17] MEDS: FUROSEMIDE 40 MG in SYRINGE 1 ML IV SCH ×2 (08:13→17:36)
[2020-06-17] MEDS: UMECLIDINIUM BROMIDE 62.5MCG/BLISTER 7 PUFFS/INHALER INH SCH (08:14)
[2020-06-17] MEDS: INSULIN ASPART 100 UNITS/ML 3 ML PEN SC SCH ×4 (08:16→21:13)
[2020-06-17 08:38] LABS: Folate (Folic Acid) 19.43 ng/ml (>5.38)
[2020-06-17] MEDS: ATORVASTATIN 40 MG TAB PO SCH (20:20)
[2020-06-17] MEDS: AMLODIPINE BESYLATE 5 MG TAB PO SCH (20:21)
[2020-06-17] MEDS: INSULIN GLARGINE SOLOSTAR 100 UNITS/ML 3 ML PEN SQ SCH (21:14)
[2020-06-18] MEDS: ALBUTEROL HFA 8 GM INHALER INH SCH ×4 (07:07→19:25)
--- NOTE | 2020-06-18 08:25 | Hospitalist Progress Note ---
Date of Service June 18, 2020 Assessment & Plan (1) CHF (congestive heart failure): Acute on chronic diastolic CHF, has mild ischemic cardiomyopathy with LVEF 45% on most recent echo [facility] with [facility] [place] Lasix increase to 80 mg IV twice daily. pnly modestly net negative fluid balance, no renal distress and mild weight loss , low-sodium diet, fluid restrict 1800 mL's per day -Carefully monitor renal function with Chronic kidney disease stage 3-4 -Supplemental O2 as needed -Continue cardiac medications from home to include metoprolol, losartan, isosorbide, amlodipine all for blood pressure control -Hold home p.o. Bumex (2) Hypoxia: With acute on chronic respiratory failure with hypoxia Normally hehas chronic respiratory failure on 2 L at nighttime with his BiPAP, underlying copd continue to titrate oxygen requirement COPD remains on home inhalers with albuterol as needed and Spiriva once daily (3) A-fib: Permanent atrial fibrillation, on Eliquis for anticoagulation metoprolol tartrate for rate control (4) CAD (coronary artery disease), [place] coronary artery: Status post 6 stents and two-vessel CABG-> Plavix, Eliquis, metoprolol, isosorbide, atorvastatin (5) CKD (chronic kidney disease) stage 3, GFR 30-59 ml/min: Baseline creatinine 2.0 as per -Avoid nephrotoxins continue losartan at this time (6) Diabetes mellitus type 2 in obese: On insulin at home -Continue home Lantus and will give NovoLog sliding scale, Accu-Cheks q. before meals and at bedtime Diabetic diet hemoglobin A1c 8.1 (7) HTN (hypertension), benign: Blood pressures mildly elevated here -Giving IV diuresis -Continue other medications as above from home (8) GERD (gastroesophageal reflux disease): Continue PPI (9) BPH (benign prostatic hyperplasia): Continue Flomax and finasteride , No acute issues (10) Depression: Stable -Continue home sertraline (11) Hyperlipidemia: Continue home statin (12) COPD (chronic obstructive pulmonary disease): With hypoxia as above, does not seem to be an exacerbation at this time -Continue home Spiriva, albuterol as needed No need for steroids specially in the setting of acute CHF (13) KELLY treated with BiPAP: BiPAP from home with 2 L at nighttime (14) Obesity: BMI 42.1 -Needs weight loss and low calorie diet (15) Ischemic cardiomyopathy: As noted above, last LVEF 45% (16) PAD (peripheral artery disease): He has bilateral lower extremity PAD with leg claudication No intervention to be performed given his chronic kidney disease -Continue Plavix, Eliquis, statin (17) Chronic respiratory failure with hypoxia: As noted above, uses 2 L with BiPAP at nighttime (18) History of CVA (cerebrovascular accident): Now on Eliquis, with history of A. fib With some residual left-sided weakness -Continue Plavix, Eliquis (19) Anemia: With mild anemia here with is normocytic, hemoglobin 11 -Check iron studies, B12, folate, TSH in the morning Most likely anemia of chronic disease Follow CBC (20) DVT prophylaxis: Betseyquis, would not do VERN hose or SCDs given PAD Disposition-admit to telemetry, expected least a 2 midnight stay DNR, but would consider intubation for pure respiratory failure Admission and Anticipated Discharge Date Admission Date: June 16, 2020 Subjective Patient was seen in the company of his , she states that he did have his outpt doctors attempt to increase his diuretic without success, the pt feels improved and states he lost 5# [facility] [place] Review of Systems Review of Systems: Moderate distress and fatigue no headache, blurry or double vision no speech or swallowing issues no chest pain, pressure or palpitations continues with Dyspnea on exertion no abdominal pain, nausea or vomiting, diarrhea or constipation no dysuria, hematuria or frequency Osteoarthritis joint pain and persistent distal lower extremity swelling, but reducing no back pain, CVA tenderness or radicular pain no bruising, bleeding or rashes no focal signs of weakness or numbness or altered sensation no complaints or anxiety or depression. Physical Exam Physical Exam: The patient appeared chronically ill Vital signs as documented. Head exam is normocephalic atraumatic no scleral icterus Neck is with 2 cm JVD, thyromegaly, or carotid bruits. Lungs continues with overall poor air movement scant rales at the base Cardiac exam, Rhythm is regular. Systolic ejection murmur Abdominal exam reveals normal bowel sounds, soft non tender, no masses Extremities are mildly edematous (this is after diuresis ensued) and both pedal pulses are normal. Neurologic exam is alert and oriented, no focal loss of strength or sensation Skin is without bruises or rashes Psychologically is without concerns for anxiety or depression Results & Data Results & Data ([facility]) Vital Signs (Past 12 Hours) Vital Signs Temp Pulse Resp BP Pulse Ox 06/18/20 07:52 98.6 F 65 18 143/58 H 95 06/18/20 03:13 98.2 F 101 H 20 119/58 L 96 06/17/20 23:27 98.8 F 72 20 118/56 L 93 PG Care Time/CCT Total # of Minutes Spent Total Time Spent with Patient: Total time spent is greater than 50% in coordination of care (as documented) at patient's floor/unit and/or counseling patient: Coding Level of Care Code 52251 Subseq Hosp Care Lvl 3 Diagnoses CHF (congestive heart failure) I50.9 Heart failure chronicity: acute on chronic Heart failure type: unspecified Hypoxia R09.02 A-fib I48.91 CAD (coronary artery disease), [place] coronary artery I25.10 CKD (chronic kidney disease) stage 3, GFR 30-59 ml/min N18.3 Diabetes mellitus type 2 in obese E11.69; E66.9 HTN (hypertension), benign I10 GERD (gastroesophageal reflux disease) K21.9 BPH (benign prostatic hyperplasia) N40.0 Depression F32.9 Hyperlipidemia E78.5 COPD (chronic obstructive pulmonary disease) J44.9 KELLY treated with BiPAP G47.33 Obesity E66.9 Ischemic cardiomyopathy I25.5 PAD (peripheral artery disease) I73.9 Chronic respiratory failure with hypoxia J96.11 History of CVA (cerebrovascular accident) Z86.73 Anemia D64.9 DVT prophylaxis Z29.9 (1) CHF (congestive heart failure) Heart failure chronicity: acute on chronic Heart failure type: unspecified Qualified Code(s): I50.9 - Heart failure, unspecified
[2020-06-18] MEDS: INSULIN ASPART 100 UNITS/ML 3 ML PEN SC SCH ×4 (08:57→20:54)
[2020-06-18] MEDS: ISOSORBIDE MONO EXTENDED REL 30 MG TABCR PO SCH (08:58)
[2020-06-18] MEDS: METOPROLOL TARTRATE 25 MG TAB PO SCH ×2 (09:00→20:55)
[2020-06-18] MEDS: EZETIMIBE 10 MG TABLET PO SCH (09:01)
[2020-06-18] MEDS: FINASTERIDE 5 MG TAB PO SCH (09:01)
[2020-06-18] MEDS: LOSARTAN POTASSIUM 50 MG TAB PO SCH (09:01)
[2020-06-18] MEDS: CLOPIDOGREL BISULFATE 75 MG TAB PO SCH (09:02)
[2020-06-18] MEDS: CHOLECALCIFEROL 1,000 UNITS 25 MCG TAB PO SCH (09:02)
[2020-06-18] MEDS: MULTIVITAMIN TAB PO SCH (09:02)
[2020-06-18] MEDS: SERTRALINE HCL 50 MG TABLET PO SCH (09:02)
[2020-06-18] MEDS: PANTOprazole 40 MG TAB PO SCH (09:02)
[2020-06-18] MEDS: APIXABAN 5 MG TABLET PO SCH ×2 (09:03→20:56)
[2020-06-18] MEDS: TAMSULOSIN HCL 0.4 MG CAP PO SCH ×2 (09:03→20:56)
[2020-06-18] MEDS: FUROSEMIDE 40 MG in SYRINGE 1 ML IV SCH (09:03)
[2020-06-18] MEDS: UMECLIDINIUM BROMIDE 62.5MCG/BLISTER 7 PUFFS/INHALER INH SCH (09:03)
[2020-06-18 09:29] LABS: Calcium 8.9 mg/dl (8.5-10.1); Creatinine Clr Calc Pharmacy 42.9 ml/min; Est GFR (African American) 37.1; Potassium 3.5 mmol/L (3.5-5.1)
[2020-06-18] MEDS: FUROSEMIDE IV SCH (17:12)
[2020-06-18] MEDS: INSULIN GLARGINE SOLOSTAR 100 UNITS/ML 3 ML PEN SQ SCH (20:54)
[2020-06-18] MEDS: AMLODIPINE BESYLATE 5 MG TAB PO SCH (20:56)
[2020-06-18] MEDS: ATORVASTATIN 40 MG TAB PO SCH (20:56)
[2020-06-19] MEDS: ALBUTEROL HFA 8 GM INHALER INH SCH ×4 (07:11→19:25)
--- NOTE | 2020-06-19 07:25 | Hospitalist Progress Note ---
Date of Service June 19, 2020 Assessment & Plan (1) CHF (congestive heart failure): Acute on chronic diastolic CHF, has mild ischemic cardiomyopathy with LVEF 45% on most recent echo Follows with [facility]ology at the [facility] in [place] Lasix increase to 80 mg IV twice daily 06/18 in the pm. replete low potassium , low-sodium diet, fluid restrict 1800 mL's per day -Continue to monitor renal function with Chronic kidney disease stage 3-4 -Supplemental O2 as needed -Continue cardiac medications from home to include metoprolol, losartan, isosorbide, amlodipine all for blood pressure control -Hold home p.o. Bumex while on iv lasix (2) Hypoxia: With acute on chronic respiratory failure with hypoxia Normally hehas chronic respiratory failure on 2 L at nighttime with his BiPAP, underlying copd continue to titrate oxygen requirement, now on 3 liters COPD remains on home inhalers with albuterol as needed and Spiriva once daily (3) A-fib: Permanent atrial fibrillation, on Eliquis for anticoagulation metoprolol tartrate for rate control (4) CAD (coronary artery disease), [place] coronary artery: remains stable, status post 6 stents and two-vessel CABG-> Plavix, Eliquis, metoprolol, isosorbide, atorvastatin (5) CKD (chronic kidney disease) stage 3, GFR 30-59 ml/min: Baseline creatinine 2.0 as per -Avoid nephrotoxins continues on losartan at this time (6) Diabetes mellitus type 2 in obese: On insulin at home -Continue home Lantus and will give NovoLog sliding scale, Accu-Cheks q. before meals and at bedtime Diabetic diet hemoglobin A1c 8.1 (7) HTN (hypertension), benign: Blood pressures improved with diuresis -Giving IV diuresis -Continue other medications as above from home (8) GERD (gastroesophageal reflux disease): Continue PPI (9) BPH (benign prostatic hyperplasia): Continue Flomax and finasteride , No acute issues (10) Depression: Stable -Continue home sertraline (11) Hyperlipidemia: Continue home statin (12) COPD (chronic obstructive pulmonary disease): With hypoxia as above, is not with exacerbation at this time -Continue home Spiriva, albuterol as needed No need for steroids specially in the setting of acute CHF (13) KELLY treated with BiPAP: BiPAP from home with 2 L at nighttime (14) Obesity: BMI 42.1 -Needs weight loss and low calorie diet (15) Ischemic cardiomyopathy: As noted above, last LVEF 45% HFrEF (16) PAD (peripheral artery disease): He has bilateral lower extremity PAD with leg claudication No intervention to be performed given his chronic kidney disease -Continue Plavix, Eliquis, statin (17) Chronic respiratory failure with hypoxia: As noted above, uses 2 L with BiPAP at nighttime (18) History of CVA (cerebrovascular accident): Now on Eliquis, with history of A. fib With some residual left-sided weakness -Continue Plavix, Eliquis (19) Anemia: With mild anemia here with is normocytic, hemoglobin 11 -Check iron studies, B12, folate, TSH in the morning Most likely anemia of chronic disease Follow CBC (20) DVT prophylaxis: Eliquis, would not do VERN hose or SCDs given PAD DNR, but would consider intubation for pure respiratory failure Admission and Anticipated Discharge Date Admission Date: June 16, 2020 Subjective Patient was seen in the company of his , the pt did not have a weight loss and his diuretics were doubled he has preserved renal function but some hypokalemia, continue the higher amount and follow for another day [facility] [place] Review of Systems Review of Systems: Moderate distress and fatigue no headache, blurry or double vision no speech or swallowing issues no chest pain, pressure or palpitations continues with Dyspnea on exertion no abdominal pain, nausea or vomiting, diarrhea or constipation no dysuria, hematuria or frequency Osteoarthritis joint pain and persistent distal lower extremity swelling, but reducing no back pain, CVA tenderness or radicular pain no bruising, bleeding or rashes no focal signs of weakness or numbness or altered sensation no complaints or anxiety or depression. Physical Exam Physical Exam: The patient appeared chronically ill Vital signs as documented. Head exam is normocephalic atraumatic no scleral icterus Neck is with 2 cm JVD, thyromegaly, or carotid bruits. Lungs continues with overall poor air movement scant rales at the base Cardiac exam, Rhythm is regular. Systolic ejection murmur Abdominal exam reveals normal bowel sounds, soft non tender, no masses Extremities are mildly edematous (this is after diuresis ensued) and both pedal pulses are normal. Neurologic exam is alert and oriented, no focal loss of strength or sensation Skin is without bruises or rashes Psychologically is without concerns for anxiety or depression Results & Data Results & Data ([facility]) Vital Signs (Past 12 Hours) Vital Signs Temp Pulse Pulse Resp BP Pulse Ox 06/19/20 07:17 98.8 F 77 18 151/78 H 92 06/19/20 07:14 63 16 96 06/19/20 03:03 98.2 F 60 20 143/73 H 97 06/19/20 00:38 62 06/18/20 23:08 98.2 F 79 21 107/40 L 97 06/18/20 19:32 73 19 95 PG Care Time/CCT Total # of Minutes Spent Total Time Spent with Patient: Total time spent is greater than 50% in coordination of care (as documented) at patient's floor/unit and/or counseling patient: Coding Level of Care Code 91349 Subseq Hosp Care Lvl 3 Diagnoses CHF (congestive heart failure) I50.9 Heart failure chronicity: acute on chronic Heart failure type: unspecified Hypoxia R09.02 A-fib I48.91 CAD (coronary artery disease), [place] coronary artery I25.10 CKD (chronic kidney disease) stage 3, GFR 30-59 ml/min N18.3 Diabetes mellitus type 2 in obese E11.69; E66.9 HTN (hypertension), benign I10 GERD (gastroesophageal reflux disease) K21.9 BPH (benign prostatic hyperplasia) N40.0 Depression F32.9 Hyperlipidemia E78.5 COPD (chronic obstructive pulmonary disease) J44.9 KELLY treated with BiPAP G47.33 Obesity E66.9 Ischemic cardiomyopathy I25.5 PAD (peripheral artery disease) I73.9 Chronic respiratory failure with hypoxia J96.11 History of CVA (cerebrovascular accident) Z86.73 Anemia D64.9 DVT prophylaxis Z29.9 (1) CHF (congestive heart failure) Heart failure chronicity: acute on chronic Heart failure type: unspecified Qualified Code(s): I50.9 - Heart failure, unspecified
[2020-06-19 07:58] LABS: BUN Creatinine Ratio 13.6 (10-20); Calcium 8.8 mg/dl (8.5-10.1); Creatinine Clr Calc Pharmacy 42.7 ml/min; Est GFR (African American) 36.9; Est GFR (Non-African American) 31.8; Potassium 3.1 mmol/L (3.5-5.1)
[2020-06-19] MEDS: FUROSEMIDE IV SCH (08:48)
[2020-06-19] MEDS: INSULIN ASPART 100 UNITS/ML 3 ML PEN SC SCH ×4 (08:48→20:27)
[2020-06-19] MEDS: METOPROLOL TARTRATE 25 MG TAB PO SCH ×2 (08:49→20:23)
[2020-06-19] MEDS: EZETIMIBE 10 MG TABLET PO SCH (08:49)
[2020-06-19] MEDS: UMECLIDINIUM BROMIDE 62.5MCG/BLISTER 7 PUFFS/INHALER INH SCH (08:49)
[2020-06-19] MEDS: TAMSULOSIN HCL 0.4 MG CAP PO SCH ×2 (08:49→20:26)
[2020-06-19] MEDS: APIXABAN 5 MG TABLET PO SCH ×2 (08:49→20:24)
[2020-06-19] MEDS: MULTIVITAMIN TAB PO SCH (08:50)
[2020-06-19] MEDS: ISOSORBIDE MONO EXTENDED REL 30 MG TABCR PO SCH (08:50)
[2020-06-19] MEDS: CHOLECALCIFEROL 1,000 UNITS 25 MCG TAB PO SCH (08:50)
[2020-06-19] MEDS: FINASTERIDE 5 MG TAB PO SCH (08:50)
[2020-06-19] MEDS: LOSARTAN POTASSIUM 50 MG TAB PO SCH (08:50)
[2020-06-19] MEDS: SERTRALINE HCL 50 MG TABLET PO SCH (08:50)
[2020-06-19] MEDS: CLOPIDOGREL BISULFATE 75 MG TAB PO SCH (08:50)
[2020-06-19] MEDS: PANTOprazole 40 MG TAB PO SCH (08:50)
[2020-06-19] MEDS: POTASSIUM CHLORIDE 20 MEQ TABCR PO SCH ×2 (14:34→20:26)
[2020-06-19] MEDS: FUROSEMIDE 80 MG in SYRINGE 0 ML IV SCH (17:29)
[2020-06-19] MEDS: ATORVASTATIN 40 MG TAB PO SCH (20:25)
[2020-06-19] MEDS: AMLODIPINE BESYLATE 5 MG TAB PO SCH (20:25)
[2020-06-19] MEDS: INSULIN GLARGINE SOLOSTAR 100 UNITS/ML 3 ML PEN SQ SCH (20:27)
[2020-06-20] MEDS: ALBUTEROL HFA 8 GM INHALER INH SCH ×4 (07:16→19:49)
[2020-06-20] MEDS: INSULIN ASPART 100 UNITS/ML 3 ML PEN SC SCH ×4 (08:07→20:42)
[2020-06-20] MEDS: POTASSIUM CHLORIDE 20 MEQ TABCR PO SCH ×3 (08:07→20:41)
[2020-06-20] MEDS: FUROSEMIDE 80 MG in SYRINGE 0 ML IV SCH (08:07)
[2020-06-20] MEDS: UMECLIDINIUM BROMIDE 62.5MCG/BLISTER 7 PUFFS/INHALER INH SCH (08:07)
[2020-06-20] MEDS: TAMSULOSIN HCL 0.4 MG CAP PO SCH ×2 (08:07→20:44)
[2020-06-20] MEDS: ISOSORBIDE MONO EXTENDED REL 30 MG TABCR PO SCH (08:08)
[2020-06-20] MEDS: PANTOprazole 40 MG TAB PO SCH (08:08)
[2020-06-20] MEDS: METOPROLOL TARTRATE 25 MG TAB PO SCH ×2 (08:08→20:45)
[2020-06-20] MEDS: CLOPIDOGREL BISULFATE 75 MG TAB PO SCH (08:08)
[2020-06-20] MEDS: APIXABAN 5 MG TABLET PO SCH ×2 (08:08→20:44)
[2020-06-20] MEDS: EZETIMIBE 10 MG TABLET PO SCH (08:08)
[2020-06-20] MEDS: LOSARTAN POTASSIUM 50 MG TAB PO SCH (08:08)
[2020-06-20] MEDS: MULTIVITAMIN TAB PO SCH (08:08)
[2020-06-20] MEDS: FINASTERIDE 5 MG TAB PO SCH (08:08)
[2020-06-20] MEDS: SERTRALINE HCL 50 MG TABLET PO SCH (08:08)
[2020-06-20] MEDS: CHOLECALCIFEROL 1,000 UNITS 25 MCG TAB PO SCH (08:09)
[2020-06-20 08:41] LABS: Hematocrit (blood only) 39.4 % (42-52); Hemoglobin 13.1 g/dL (14.0-18.0); Mean Corpuscular Hemoglobin 32.8 pg (25-34); Mean Corpuscular Hgb Conc 33.2 g/dL (32-36); Mean Corpuscular Volume 98.5 fL (80-100); Mean Platelet Volume 9.5 fL (7.4-10.4); Platelet Count 306 K/uL (130-400); RDW Coefficient of Variation 13.2 % (11.5-14.5); RDW Standard Deviation 47.3 fL (36.4-46.3); White Blood Count 8.49 K/uL (4.8-10.8)
[2020-06-20 09:09] LABS: BUN Creatinine Ratio 13.4 (10-20); Calcium 9.9 mg/dl (8.5-10.1); Creatinine Clr Calc Pharmacy 37.1 ml/min; Est GFR (African American) 31.4; Est GFR (Non-African American) 27.1; Magnesium 2.1 mg/dl (1.8-2.4); Potassium 3.2 mmol/L (3.5-5.1)
--- NOTE | 2020-06-20 14:52 | Hospitalist Progress Note ---
Date of Service June 20, 2020 Assessment & Plan (1) CHF (congestive heart failure): Acute on chronic diastolic CHF, has mild ischemic cardiomyopathy with LVEF 45% on most recent echo Follows with cardiology at the [facility] in [place] Given minor increase in his creatinine will transition his diuretic back to his home oral dose of Bumex 3 mg once a day on 06/21 and watch his creatinine replete low potassium once again on 06/20/2020 , low-sodium diet, fluid restrict 1800 mL's per day -Continue to monitor renal function with Chronic kidney disease stage 3-4 -Supplemental O2 as needed -Continue cardiac medications from home to include metoprolol, losartan, isosorbide, amlodipine all for blood pressure control - (2) Hypoxia: With acute on chronic respiratory failure with hypoxia Normally hehas chronic respiratory failure on 2 L at nighttime with his BiPAP, underlying copd continue to titrate oxygen requirement, now on 3 liters COPD remains on home inhalers with albuterol as needed and Spiriva once daily (3) A-fib: Permanent atrial fibrillation, on Eliquis for anticoagulation metoprolol tartrate for rate control (4) CAD (coronary artery disease), [place] coronary artery: remains stable, status post 6 stents and two-vessel CABG-> Plavix, Eliquis, metoprolol, isosorbide, atorvastatin (5) CKD (chronic kidney disease) stage 3, GFR 30-59 ml/min: Baseline creatinine 2.0 as per -Avoid nephrotoxins continues on losartan at this time (6) Diabetes mellitus type 2 in obese: On insulin at home -Continue home Lantus and will give NovoLog sliding scale, Accu-Cheks q. before meals and at bedtime Diabetic diet hemoglobin A1c 8.1 (7) HTN (hypertension), benign: Blood pressures improved with diuresis Return to p.o. Bumex -Continue other medications as above from home (8) GERD (gastroesophageal reflux disease): Continue PPI (9) BPH (benign prostatic hyperplasia): Continue Flomax and finasteride , No acute issues (10) Depression: Stable -Continue home sertraline (11) Hyperlipidemia: Continue home statin (12) COPD (chronic obstructive pulmonary disease): With hypoxia as above, is not with exacerbation at this time -Continue home Spiriva, albuterol as needed No need for steroids specially in the setting of acute CHF (13) KELLY treated with BiPAP: BiPAP from home with 2 L at nighttime (14) Obesity: BMI 42.1 -Needs weight loss and low calorie diet (15) Ischemic cardiomyopathy: As noted above, last LVEF 45% HFrEF (16) PAD (peripheral artery disease): He has bilateral lower extremity PAD with leg claudication No intervention to be performed given his chronic kidney disease -Continue Plavix, Eliquis, statin (17) Chronic respiratory failure with hypoxia: As noted above, uses 2 L with BiPAP at nighttime (18) History of CVA (cerebrovascular accident): Now on Eliquis, with history of A. fib With some residual left-sided weakness -Continue Plavix, Eliquis (19) Anemia: With mild anemia here with is normocytic, hemoglobin 11 -Check iron studies, B12, folate, TSH in the morning Most likely anemia of chronic disease Follow CBC (20) DVT prophylaxis: Eliquis, would not do VERN hose or SCDs given PAD DNR, but would consider intubation for pure respiratory failure Admission and Anticipated Discharge Date Admission Date: June 16, 2020 Subjective Patient was seen in the company of his , his patient did have weight reduction by the scale overnight approximately 5 pounds. Cumulative fluid balance is -3 L. He is no renal distress. We will positioning to oral Lasix on 07/07 [facility] [place] Review of Systems Review of Systems: Moderate distress and fatigue no headache, blurry or double vision no speech or swallowing issues no chest pain, pressure or palpitations continues with Dyspnea on exertion no abdominal pain, nausea or vomiting, diarrhea or constipation no dysuria, hematuria or frequency Osteoarthritis joint pain and persistent distal lower extremity swelling, but reducing no back pain, CVA tenderness or radicular pain no bruising, bleeding or rashes no focal signs of weakness or numbness or altered sensation no complaints or anxiety or depression. Physical Exam Physical Exam: The patient appeared chronically ill Vital signs as documented. Head exam is normocephalic atraumatic no scleral icterus Neck is with 2 cm JVD, thyromegaly, or carotid bruits. Lungs continues with overall poor air movement scant rales at the base Cardiac exam, Rhythm is regular. Systolic ejection murmur Abdominal exam reveals normal bowel sounds, soft non tender, no masses Extremities are mildly edematous (this is after diuresis ensued) and both pedal pulses are normal. Neurologic exam is alert and oriented, no focal loss of strength or sensation Skin is without bruises or rashes Psychologically is without concerns for anxiety or depression Results & Data Results & Data ([facility]) Vital Signs (Past 12 Hours) Vital Signs Temp Pulse Resp BP Pulse Ox 06/20/20 11:48 97.9 F 63 18 140/60 90 06/20/20 11:17 89 18 93 06/20/20 07:18 72 16 92 06/20/20 07:04 98.2 F 79 18 133/61 94 06/20/20 04:59 98.2 F 72 20 103/58 L 94 PG Care Time/CCT Total # of Minutes Spent Total Time Spent with Patient: Total time spent is greater than 50% in coordination of care (as documented) at patient's floor/unit and/or counseling patient: Coding Level of Care Code 31789 Subseq Hosp Care Lvl 3 Diagnoses CHF (congestive heart failure) I50.9 Heart failure chronicity: acute on chronic Heart failure type: unspecified Hypoxia R09.02 A-fib I48.91 CAD (coronary artery disease), [place] coronary artery I25.10 CKD (chronic kidney disease) stage 3, GFR 30-59 ml/min N18.3 Diabetes mellitus type 2 in obese E11.69; E66.9 HTN (hypertension), benign I10 GERD (gastroesophageal reflux disease) K21.9 BPH (benign prostatic hyperplasia) N40.0 Depression F32.9 Hyperlipidemia E78.5 COPD (chronic obstructive pulmonary disease) J44.9 KELLY treated with BiPAP G47.33 Obesity E66.9 Ischemic cardiomyopathy I25.5 PAD (peripheral artery disease) I73.9 Chronic respiratory failure with hypoxia J96.11 History of CVA (cerebrovascular accident) Z86.73 Anemia D64.9 DVT prophylaxis Z29.9 (1) CHF (congestive heart failure) Heart failure chronicity: acute on chronic Heart failure type: unspecified Qualified Code(s): I50.9 - Heart failure, unspecified
[2020-06-20] MEDS: INSULIN GLARGINE SOLOSTAR 100 UNITS/ML 3 ML PEN SQ SCH (20:42)
[2020-06-20] MEDS: ATORVASTATIN 40 MG TAB PO SCH (20:43)
[2020-06-20] MEDS: AMLODIPINE BESYLATE 5 MG TAB PO SCH (20:44)
[2020-06-21 07:01] VITALS: BP 123/61; TEMP 98.1
[2020-06-21] MEDS: ALBUTEROL HFA 8 GM INHALER INH SCH ×2 (07:12→11:02)
[2020-06-21 07:41] LABS: Potassium 3.7 mmol/L (3.5-5.1)
[2020-06-21 07:42] LABS: BUN Creatinine Ratio 12.7 (10-20); Calcium 8.9 mg/dl (8.5-10.1); Creatinine Clr Calc Pharmacy 39.3 ml/min; Est GFR (Non-African American) 29.3
[2020-06-21] MEDS: POTASSIUM CHLORIDE 20 MEQ TABCR PO SCH (08:01)
[2020-06-21] MEDS: LOSARTAN POTASSIUM 50 MG TAB PO SCH (08:02)
[2020-06-21] MEDS: APIXABAN 5 MG TABLET PO SCH (08:02)
[2020-06-21] MEDS: ISOSORBIDE MONO EXTENDED REL 30 MG TABCR PO SCH (08:02)
[2020-06-21] MEDS: METOPROLOL TARTRATE 25 MG TAB PO SCH (08:02)
[2020-06-21] MEDS: MULTIVITAMIN TAB PO SCH (08:02)
[2020-06-21] MEDS: UMECLIDINIUM BROMIDE 62.5MCG/BLISTER 7 PUFFS/INHALER INH SCH (08:02)
[2020-06-21] MEDS: TAMSULOSIN HCL 0.4 MG CAP PO SCH (08:02)
[2020-06-21] MEDS: CHOLECALCIFEROL 1,000 UNITS 25 MCG TAB PO SCH (08:02)
[2020-06-21] MEDS: SERTRALINE HCL 50 MG TABLET PO SCH (08:02)
[2020-06-21] MEDS: INSULIN ASPART 100 UNITS/ML 3 ML PEN SC SCH (08:03)
[2020-06-21] MEDS: PANTOprazole 40 MG TAB PO SCH (08:03)
[2020-06-21] MEDS: CLOPIDOGREL BISULFATE 75 MG TAB PO SCH (08:03)
[2020-06-21] MEDS: FINASTERIDE 5 MG TAB PO SCH (08:03)
[2020-06-21] MEDS: EZETIMIBE 10 MG TABLET PO SCH (08:03)
[2020-06-21] MEDS ORDERED: BUMETANIDE 1 MG TAB PO SCH (09:00)
--- NOTE | 2020-06-21 09:36 | Discharge Summary ---
Date of Service June 21, 2020 Admission HPI Per Admitting Provider This patient is a very pleasant 75-year-old male [place] with a history of A. fib on Eliquis, CAD status post CABG and 6 stents, chronic diastolic CHF, and mild LV dysfunction with EF 45%, HTN, CKD stage III, COPD, CVA with mild residual left-sided weakness, GERD, BPH, hyperlipidemia, depression, DM 2, KELLY on BiPAP, and PAD of the bilateral lower extremities who presents for the second time in the last 10 days to our ER with acutely worsening shortness of breath. In the ER on 06/06 he was treated with IV Bumex and potassium and felt well enough to go home. He is normally on no O2 during the day but uses 2 L with his BiPAP of O2 nocturnally and he tried to use BiPAP this morning but it did not help and he came to the ER. His pulse ox at home on his 's pulse oximeter was 77%. Upon arrival here today, his pulse ox was 80% on room air. His chest x-ray appeared worse than previous with cardiomegaly and pulmonary vascular congestion. His keeps a daily record of his vital signs and weights-she reports after last week's ER visit, he went up on his Bumex to 2 mg p.o. twice daily for 2 days and then his PCP directed him to take 3 mg p.o. once daily (previous dose was 2 mg p.o. once daily). His weight did go down by 7 pounds, and now he is back up 9 pounds from that aba at 292 pounds on the home scale today. He also has some increased ankle swelling and increased abdominal girth and distention. He denies fever/chills, no cough, no chest pain. No nausea/vomiting, no abdominal pain, no constipation or diarrhea. He has been socially isolating and staying at home except to go to doctors visits and [place] . In the ER, he was given a dose of IV Lasix. He will be admitted for acute exacerbation of chronic diastolic CHF. Principal Diagnosis Acute on chronic diastolic CHF, Acute respiratory failure with hypoxia Discharge Exam Constitutional WD/WN, vitals as above + morbidly obese Eyes + anicteric sclerae Neck trachea midline, no thyromegaly (Obese neck) Respiratory normal respiratory effort, lungs clear to auscultation no cough and not tachypneic Auscultation: + diminished lung sounds (Throughout) Cardiovascular Rate/Rhythm: regular rate and + irregularly irregular Heart Sounds: no murmur Extremities: no edema Chest (Breasts) Chest: + abnormal inspection of chest (Midline sternotomy scar) Gastrointestinal (Abdomen) normal bowel sounds, soft, nontender, no hepatosplenomegaly (Morbidly obese) Musculoskeletal Extremities: extremities normal to inspection; no cyanosis and no clubbing Skin no rashes, warm and dry Neurologic moves all extremities and awake; no focal motor deficits Psychiatric A+Ox3, euthymic affect Lymphatic no lymphedema Discharge Data Allergies Allergy/AdvReac Type Severity Reaction Status Date / Time lisinopril Allergy Unknown Unverified 06/16/20 09:29 rosiglitazone AdvReac Intermediate PASSES Verified 06/06/20 16:27 OUT, LIGHT HEADED Consultations 06/16/20 10:43 ED Decision to Admit Stat 06/16/20 14:34 Consult Case Management - Discharge Planning Routine Ordered Studies CXR Hospital Course (1) CHF (congestive heart failure): Acute on chronic diastolic CHF, has mild ischemic cardiomyopathy with LVEF 45% on most recent echo Follows with cardiology at [facility] in [place] Diuresed with Lasix 80mg IV bid x 4 days, lost 6 kg body weight, wood heel flap inserter remains stable at 2.1, feeling much better Will wean off O2--> check O2 with ambulation today to see if needs home O2 during daytime -continue low-sodium diet, fluid restrict 1800 mL's per day, daily weights at home -Continue to monitor renal function with Chronic kidney disease stage 3-4 as outpt -Continue cardiac medications from home to include metoprolol, losartan, isosorbide, amlodipine all for blood pressure control -continue Bumex 3mg po qAM and take extra dose in afternoon for weight gain >3 lbs in 24 hours (2) Hypoxia: With acute on chronic respiratory failure with hypoxia Normally he has chronic respiratory failure on 2 L at nighttime with his BiPAP, underlying copd Was on 3LNC here , now weaned to RA at rest, but will need O2 with exertion most likely COPD remains on home inhalers with albuterol as needed and Spiriva once daily (3) A-fib: Permanent atrial fibrillation, on Eliquis for anticoagulation metoprolol tartrate for rate control-rates controlled here (4) CAD (coronary artery disease), [place] coronary artery: remains stable, status post 6 stents and two-vessel CABG-> Plavix, Eliquis, metoprolol, isosorbide, atorvastatin (5) CKD (chronic kidney disease) stage 3, GFR 30-59 ml/min: Baseline creatinine 2.0 as per -Avoid nephrotoxins continues on losartan at this time wood heel flap inserter 2.1 on day of discharge (6) Diabetes mellitus type 2 in obese: On insulin at home -Continue home Lantus and Novolog Diabetic diet hemoglobin A1c 8.1 here, room for improvement f/u PCP (7) HTN (hypertension), benign: Blood pressures improved with diuresis-had been elevated Returned to p.o. Bumex -Continue other medications as above from home (8) GERD (gastroesophageal reflux disease): Continue PPI (9) BPH (benign prostatic hyperplasia): Continue Flomax and finasteride No acute issues (10) Depression: Stable -Continue home sertraline (11) Hyperlipidemia: Continue home statin (12) COPD (chronic obstructive pulmonary disease): With hypoxia as above, is not with exacerbation at this time -Continue home Spiriva, albuterol as needed No need for steroids specially in the setting of acute CHF (13) KELLY treated with BiPAP: BiPAP from home with 2 L at nighttime (14) Obesity: BMI 40.2 -Needs weight loss and low calorie diet (15) Ischemic cardiomyopathy: As noted above, last LVEF 45% HFrEF (16) PAD (peripheral artery disease): He has bilateral lower extremity PAD with leg claudication No intervention to be performed given his chronic kidney disease -Continue Plavix, Eliquis, statin (17) Chronic respiratory failure with hypoxia: As noted above, uses 2 L with BiPAP at nighttime and needs O2 now here daytime with exertion (18) History of CVA (cerebrovascular accident): Now on Eliquis, with history of A. fib With some residual left-sided weakness -Continue Plavix, Eliquis (19) Anemia: With mild anemia here with is normocytic, hemoglobin 11 - iron studies show Fe-deficiency with transferrin sat 11%, but likely anemia of chronic disease for most part B12, folate normal, TSH normal Most likely anemia of chronic disease Follow CBC -could start FeSO4 bid f/u with PCP (20) DVT prophylaxis: Eliquis, would not do VERN hose or SCDs given PAD DNR, but would consider intubation for pure respiratory failure Dispo-stable for dc to home Total Time Total Time Spent Total Time Spent (In Minutes): >30 min Total Time Includes: Examination of the Patient, Discharge Planning and Medication Reconciliation Discharge Plan Discharge Items Patient Disposition: Home - Home Health Services Reason For Visit: ACUTE CHF,HYPOXIA Discharge Diagnosis: Acute on chronic diastolic CHF, Acute respiratory failure with hypoxia Condition on Discharge: Good Activity: Resume your previous activity Non-emergency contact: Primary Care Provider and Ela Teacher Call non-emergency contact if: you have any medication questions and your symptoms worsen Follow-up/Referrals: Austin Singletary MD [Primary Care Provider] - (Please follow up within 1 week.) Diet: Carb Consistent or DM2 and Low Sodium (2gm) Addtl Attending Provider Instructions: You were admitted with congestive heart failure and too much fluid causing your oxygen levels to go down in the bloodstream. You improved with getting IV lasix (a a diuretic) through the IV. You lost 12 lbs. of lfuid while you were here. You should continue on the Bumex 3mg by mouth in the morning and you may need an extra dose in the afternoons if your weight goes up by more than 3 lbs in 24 hours. Please follow up with your PCP and with your Ela Teacher within 1-2 weeks. Call your Primary Care doctor if any of the following symptoms or problems start or get worse: * Shortness of breath or difficulty breathing * Wake up at night short of breath * Chest pain * Cough * Swelling of your hands, feet, or legs * More fatigued or tired with your normal activity * Palpitations - sudden fast heart beats WEIGHT * Weigh yourself every morning after using the bathroom. * Use the same scale. * Wear the same amount of clothing. * Write your weight down on a chart. * Call your Primary Care doctor if you gain more than 2-3 pounds in 1-2 days. MEDICATIONS * Use this discharge instruction sheet for medication instructions. * Take your medications at the time your doctor ordered. * Do not skip a dose of your medicines. * If you miss a dose of medicine, take it as soon as possible, but DO NOT DOUBLE A DOSE. * Read your medicine information when you get home. * Know all of the side effects of your medicine. If in doubt, ask your pharmacist * Call your Primary Care doctor's office if you have any side effects. * Be sure all of your doctors know what medicine and herbs you take (including cold, flu, and herbal medicine). Take the following with you to your follow-up doctor appointments: * Weight Chart * Medication List * List of questions Do not drink excessive alcohol, beer or wine. Pending Studies at Discharge: No Stand-Alone Forms: [facility] Medications and DC Order Prescriptions: Continued multivitamin Tablet 1 tab PO DAILY Qty: 0 RF: 0 amlodipine [Norvasc] 10 mg Tablet 10 mg PO QPM Qty: 0 RF: 0 omeprazole magnesium [Prilosec OTC] 20 mg Tablet,Delayed Release (Dr/Ec) 20 mg PO DAILY Qty: 0 RF: 0 metoprolol tartrate 25 mg Tablet 12.5 mg PO QAM Qty: 0 RF: 0 tamsulosin [Flomax] 0.4 mg Capsule 0.4 mg PO BID Qty: 0 RF: 0 albuterol sulfate [Ventolin HFA] 90 mcg/actuation Hfa Aerosol Inhaler 2 puff INHALATION Q4H Qty: 0 RF: 0 Lantus U-100 Insulin 100 unit/mL Solution 35 unit SUBCUT PM Qty: 0 RF: 0 isosorbide mononitrate 30 mg Tablet Extended Release 24 Hr 15 mg PO DAILY Qty: 0 RF: 0 insulin aspart U-100 [Novolog U-100 Insulin aspart] 100 unit/mL Solution 10 unit SUBCUT BID Qty: 0 RF: 0 nitroglycerin 0.4 mg Tablet, Sublingual 0.4 mg sublingual UD Qty: 0 RF: 0 finasteride [Proscar] 5 mg Tablet 5 mg PO DAILY Qty: 0 RF: 0 atorvastatin [Lipitor] 80 mg Tablet 40 mg PO PM Qty: 0 RF: 0 sertraline [Zoloft] 50 mg Tablet 50 mg PO DAILY Qty: 0 RF: 0 clopidogrel 75 mg Tablet 75 mg PO DAILY RF: 0 insulin aspart U-100 [Novolog U-100 Insulin aspart] 100 unit/mL Solution 14 unit SUBCUT QPM RF: 0 acetaminophen 500 mg Capsule 1,000 mg PO Q8H PRN (Reason: Pain) RF: 0 cholecalciferol (vitamin D3) [Vitamin D3] 25 mcg (1,000 unit) Capsule 25 mcg PO DAILY RF: 0 ezetimibe [Zetia] 10 mg Tablet 10 mg PO DAILY RF: 0 metoprolol tartrate 25 mg Tablet 12.5 mg PO QPM RF: 0 apixaban 5 mg Tablet 5 mg PO BID RF: 0 bumetanide 1 mg Tablet 3 mg PO DAILY RF: 0 losartan 50 mg Tablet 50 mg PO DAILY RF: 0 Discharge Orders: Discharge Order (Routine); Ordered 06/21/20 Ordered By: Aranza Gardner/Other Patient Handouts: Managing Type 2 Diabetes Admission Data Admit Date/Time: 06/16/20 11:30 Attending Provider: Aranza Snyder Admit Provider: Aranza Snyder Primary Care Provider: Austin Singletary Providers: Aranza Snyder Coding Level of Care Code D/C Day Management >30 mins Diagnoses CHF (congestive heart failure) I50.9 Heart failure chronicity: acute on chronic Heart failure type: unspecified Hypoxia R09.02 A-fib I48.91 CAD (coronary artery disease), [place] coronary artery I25.10 CKD (chronic kidney disease) stage 3, GFR 30-59 ml/min N18.3 Diabetes mellitus type 2 in obese E11.69; E66.9 HTN (hypertension), benign I10 GERD (gastroesophageal reflux disease) K21.9 BPH (benign prostatic hyperplasia) N40.0 Depression F32.9 Hyperlipidemia E78.5 COPD (chronic obstructive pulmonary disease) J44.9 KELLY treated with BiPAP G47.33 Obesity E66.9 Ischemic cardiomyopathy I25.5 PAD (peripheral artery disease) I73.9 Chronic respiratory failure with hypoxia J96.11 History of CVA (cerebrovascular accident) Z86.73 Anemia D64.9 DVT prophylaxis Z29.9
[2020-06-21 11:25] VITALS: PULSE 74
[2020-06-21 11:50] VITALS: O2SAT 90
== END 2020-06-21 12:05 | disposition home or self-care (01) | DRG 291 ==
LOC: ED 08:57 → SUATTDRO 11:30 → 2N 11:30